=== PATIENT | female | born 1975 | race Caucasian/White ===

== ENCOUNTER 2019-08-09 12:35 | Emergency (ER) | payer SELFPAY ==
[2019-08-09 13:14] LABS: Clarity Clear (Clear); Glucose, Urine (Dipstick) Negative (Negative); Leukocyte Negative (Negative); Nitrite Negative (Negative); Protein, Urine (Dipstick) Negative (Neg-Trace); Urobilinogen 0.2 mg/dL (Less than 2)
[2019-08-09 13:15] LABS: Bilirubin Negative (Negative); Blood, Urine Negative (Negative); Pregnancy Test - Urine (BHCG) Negative (Negative); Pregu Control Background? CLEAR/WHITE (CLR/WHITE); Pregu Control Bar Appear? YES (CONTROL BAR)
--- NOTE | 2019-08-09 16:03 | CT ---
CT ABDOMEN AND PELVIS WITHOUT IV CONTRAST: INDICATIONS: History of right sided flank pain. COMPARISON: None. FINDINGS: The lung bases are clear. The gallbladder is surgically absent. The unopacified liver, spleen, pancreas and adrenal glands are unremarkable appearing. No renal or ur eteral calculus is noted. There is a small phlebolith within the lower right hemipelvis. There is a n ormal appendix in the right lower quadrant. There is a mild amount of retained stool within the colon . The visualized unopacified small bowel appears within normal limits. No definite drainable fluid collection is evident. The visualized reproductive structures are normal appearing. No definite acute osseous abnormality is evident. IMPRESSION: 1. No renal or ureteral calculus. 2. There is a small phlebolith within the lower right hemipelvis that is slightly lateral to the dist al right ureter. There is no evidence to suggest hydronephrosis. 3. Normal appendix. 4. Moderate amount of retained stool within the colon. 5. Cholecystectomy. POS: OFF
== END 2019-08-09 13:45 | disposition home or self-care (01) ==
LOC: NAV ERS 12:35
DX: K59.00 Constipation, unspecified (principal); M54.5 Low back pain; M32.9 Systemic lupus erythematosus, unspecified; F32.9 Major depressive disorder, single episode, unspecified; Z87.442 Personal history of urinary calculi
CPT/HCPCS: 74176; 81003; 81025; 96361; 96374; 96375